=== PATIENT | male | born 1980 | race Two or more races ===

== ENCOUNTER 2019-06-15 19:21 | Emergency (ER) | payer OTHER ==
[~2019-06-15] VITALS: Ht 182.9 cm; Wt 74.8 kg
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
[2019-06-15 19:52] LABS: BASOPHILS # (AUTO) 0.1 /CMM (0.0-0.2); BASOPHILS % (AUTO) 1.2 % (0.0-2.0); EOSINOPHILS % (AUTO) 0.9 % (0.0-6.0); HEMATOCRIT 43 % (39-51); HEMOGLOBIN 14.1 g/dL (13.5-17.5); LYMPHOCYTES # (AUTO) 1.2 /CMM (0.8-4.8); LYMPHOCYTES % (AUTO) 19.9 % (20.0-44.0); MEAN CORPUSCULAR HGB CONC 33 g/dl (31.0-36.0); MEAN CORPUSCULAR VOLUME 96 fL (80-96); MONOCYTES # (AUTO) 0.9 /CMM (0.1-1.30); MONOCYTES % (AUTO) 14.3 % (2.0-12.0); NEUTROPHILS % (AUTO) 63.7 % (43.0-81.0); PLATELET COUNT (AUTO) 343 /CMM (150-450); RED BLOOD CELL COUNT(AUTO) 4.44 MIL/uL (4.5-6.0); WHITE BLOOD COUNT (AUTO) 6.2 K/uL (4.3-11.0)
[2019-06-15 20:01] LABS: CALCIUM, SERUM 9.2 mg/dL (8.5-10.1); CARBON DIOXIDE 33 mmol/L (21-32); CHLORIDE 102 mmol/L (98-107); CREATININE 1.1 mg/dL (0.6-1.3); GLUCOSE 119 mg/dL (74-106); POTASSIUM 3.6 mmol/L (3.5-5.1); SODIUM SERUM 141 mmol/L (136-145); UREA NITROGEN, BLOOD 11 mg/dL (7-18)
[2019-06-15 20:03] LABS: MAGNESIUM 2.2 mg/dL (1.8-2.4)
[2019-06-15 20:08] LABS: ALANINE AMINOTRANSFERASE 38 U/L (12-78); ALBUMIN 3.6 g/dL (3.4-5.0); ALCOHOL, BLOOD < 3 mg/dL (0-0); ALKALINE PHOSPHATASE 69 U/L (46-116); ASPARTATE AMINOTRANSFERASE 31 U/L (15-37); BILIRUBIN,DIRECT 0.2 mg/dL (0.0-0.2); BILIRUBIN,TOTAL 0.5 mg/dL (0.2-1.0); SALICYLATE < 2.8 mg/dL (2.8-20.0); TOTAL PROTEIN, SERUM 7.3 g/dL (6.4-8.2)
[2019-06-15 20:31] LABS: BILIRUBIN,URINE SMALL (NEGATIVE); BLOOD, URINE Negative Ery/uL (NEGATIVE); COLOR,URINE Yellow (YELLOW); KETONES,URINE Trace (NEGATIVE); LEUKOCYTE ESTERASE ,URINE Negative (NEGATIVE); NITRITE, URINE Negative (NEGATIVE); PROTEIN,URINE Negative (NEGATIVE); UGLUCOSE Negative (NEGATIVE)
[2019-06-15 20:36] LABS: APPEARANCE,URINE SLIGHTLY HAZY (CLEAR); BACTERIA,URINE None seen /HPF (None Seen); RBC,URINE 0-2 /HPF (0-2)
[2019-06-15 20:37] LABS: SQUAMOUS EPITHELIAL CELL,UR Rare /HPF (None Seen); URINE AMORPHOUS PHOSPHATES Few /HPF (None Seen)
[2019-06-15] MEDS ORDERED: diphenhydrAMINE HCL 50 MG/ML VIAL ONE (21:23)
[2019-06-15] MEDS ORDERED: LORAZEPAM INJ 2 MG/ML VIAL ONE (21:23)
[2019-06-15] MEDS ORDERED: HALOPERIDOL LACTATE INJ 5 MG/ML VIAL ONE (21:23)
[2019-06-15] MEDS ORDERED: diphenhydrAMINE HCL 50 MG/ML VIAL IM ONE (21:30)
[2019-06-15] MEDS ORDERED: HALOPERIDOL LACTATE INJ 5 MG/ML VIAL IM ONE (21:30)
[2019-06-15] MEDS ORDERED: LORAZEPAM INJ 2 MG/ML VIAL IM ONE (21:30)
[2019-06-15] MEDS ORDERED: OLANZAPINE 10 MG VIAL IM ONE ×2 (22:00→22:52)
--- NOTE | 2019-06-16 00:02 | NUR ---
Patient is resting comfortably in bed with eyes closed. Easily aroused. VSS
[2019-06-16 00:11] LABS: CREATINE KINASE, TOTAL 369 U/L (39-308)
--- NOTE | 2019-06-16 01:28 | NUR ---
PT ASLEEP, NO ACUTE DISTRESS NOTED, RESP EVEN AND UNLABORED. SAVANNA LIGHT WITHIN REACH. WILL CONTINUE TO MONITOR PT CLOSELY.
--- NOTE | 2019-06-16 03:32 | NUR ---
PT ASLEEP, NO ACUTE DISTRESS NOTED, RESP EVEN AND UNLABORED. SAVANNA LIGHT WITHIN REACH. WILL CONTINUE TO MONITOR PT CLOSELY.
--- NOTE | 2019-06-16 05:48 | NUR ---
PT REMAINS ASLEEP, NO ACUTE DISTRESS NOTED, RESP EVEN AND UNLABORED. SAVANNA LIGHT WITHIN REACH. WILL CONTINUE TO MONITOR PT CLOSELY.
--- NOTE | 2019-06-16 07:25 | NUR ---
PT REMAINS ASLEEP, NO ACUTE DISTRESS NOTED, RESP EVEN AND UNLABORED. SAVANNA LIGHT WITHIN REACH. WILL CONTINUE TO MONITOR PT CLOSELY.
--- NOTE | 2019-06-16 07:26 | NUR ---
REPOT GIVEN TO AM SHIFT ROXANNE GREER
--- NOTE | 2019-06-16 07:27 | NUR ---
ASSUME PT CARE. RESTING IN BED. ON MONITOR W/ STABLE VITAL. WILL CONTINUE TO MONITOR.
--- NOTE | 2019-06-16 11:19 | NUR ---
PT REQUESTED FOR URINAL. STATES FEELING DROWSY. OFFERED W/ FOOD, STATES NOT HUNGRY AT THIS TIME. ON MONITOR. WILL CONTINUE TO MONITOR. SITTER AT BEDSIDE.
--- NOTE | 2019-06-16 15:15 | NUR ---
PT IS AWAKE. WAS PROVIDED W/ MEAL TRAY. AMBULATORY W/ STEADY GAIT. AAOX3. MEDICALLY CLEARED. DISCHARGE HOME IN STABLE CONDITION.
[2019-06-16 15:18] VITALS: BP 132/66
== END 2019-06-16 15:18 | disposition home or self-care (01) ==
LOC: ER 19:32
DX: F23 Brief psychotic disorder (principal); F19.10 Other psychoactive substance abuse, uncomplicated; Z59.0 Homelessness
CPT/HCPCS: 36415; 80048; 80076; 80305; 80307; 80329; 81001; 82550; 83735; 84484; 85025; 96372 ×4; 99284; G0480; J1200; J1630; J2060; J3490; 81000-TC